=== PATIENT | male | born 1925 | race Caucasian/White ===

== ENCOUNTER 2017-03-04 20:13 | Emergency (ER) | payer MEDICARE, BC ==
[2017-03-04] MEDS ORDERED: Albuterol/Ipratropium 3.0-0.5 MG/3 ML Neb Soln NEB ONE (21:29)
[2017-03-04 21:32] VITALS: BP 118/52
[2017-03-04] MEDS ORDERED: methylPREDNISolone Sodium Succinate 125 MG/2 ML SDV IVPUSH ONE (21:55)
--- NOTE | 2017-03-04 22:01 | EDM.PDOC ---
ED HISTORY OF PRESENT ILLNESS - General Chief Complaint: Respiratory Problem Stated Complaint: COUGH/PNEUMONIA?? Time Seen by Provider: 03/04/17 21:00 Source of Information: Reports: Patient, Family History Limitations: Reports: No limitations - History of Present Illness INITIAL COMMENTS - FREE TEXT/NARRATIVE: c/o increased SOB and cough for one week, hx "asthma". No fever or chills. Has inhalers for use but has not used. Has not been seen in clinic. Breathing worse tonight when trying to lie down. No swelling. Timing/Duration: Reports: Day(s): Severity: moderate Associated Symptoms (General): Reports: cough, shortness of breath. Denies: chest pain, fever/chills - Related Data Allergies/ADRs: Allergies Allergy/AdvReac Type Severity Reaction Status Date / Time No Known Allergies Allergy Verified 03/04/17 20:27 Home Meds: Home Meds Carvedilol [Carvedilol] 3.125 mg PO DAILY 03/04/17 [History] Simvastatin [Simvastatin] 30 mg PO DAILY 03/04/17 [History] Past Medical History HEENT History: Reports: Impaired vision Cardiovascular History: Reports: Hypertension Respiratory History: Reports: Asthma Gastrointestinal History: Reports: GERD, Pancreatitis Oncologic (Cancer) History: Reports: Prostate, Other (see below) Other Oncologic History: bead implants 20years ago - Infectious Disease History Infectious Disease History: Reports: Chicken pox - Past Surgical History HEENT Surgical History: Reports: Cataract surgery GI Surgical History: Reports: Colonoscopy Social & Family History - Tobacco Use Smoking Status *Q: Former Smoker Years of Tobacco use: 30 Packs/Tins Daily: 1 Used Tobacco, but Quit: No Month Tobacco Last Used: oct - Recreational Drug Use Recreational Drug Use: No ED ROS GENERAL - Review of Systems Review Of Systems: See Below Constitutional: Reports: no symptoms HEENT: Reports: No symptoms Respiratory: Reports: Shortness of Breath, Wheezing, Cough Cardiovascular: Reports: No symptoms GI/Abdominal: Reports: No symptoms : Reports: no symptoms Musculoskeletal: Reports: no symptoms Skin: Reports: no symptoms Neurological: Reports: No Symptoms ED EXAM, GENERAL - Physical Exam Exam: See Below Exam Limited By: No limitations General Appearance: alert, mild distress Eye Exam: bilateral eye: EOMI, PERRL Ears: normal external exam, normal TMs (left), other (hearing aid to right ear) Nose: normal inspection Throat/Mouth: Normal inspection, Normal voice Head: atraumatic, normocephalic Neck: normal inspection, full range of motion. No: lymphadenopathy (L), lymphadenopathy (R) Respiratory/Chest: wheezing (bilateral mid to base). No: crackles, rales, rhonchi Cardiovascular: normal peripheral pulses, regular rate, rhythm GI/Abdominal: normal bowel sounds Extremities: normal inspection, no pedal edema Neurological: alert, oriented, CN II-XII intact, normal cognition, confused Psychiatric: normal affect Skin Exam: Warm, Dry, Intact, Normal color Course - Vital Signs Last Recorded V/S: Last Vital Signs Temp 100.0 F 03/04/17 21:36 Pulse 88 03/04/17 21:31 Resp 20 03/04/17 21:31 BP 118/52 L 03/04/17 21:31 Pulse Ox 89 L 03/04/17 21:31 - Orders/Labs/Meds Orders: Active Orders 24 hr Category Date Time Status RT Aerosol Therapy [RC] ASDIRECTED Care 03/04/17 21:30 Active Labs: Laboratory Tests 03/04/17 03/04/17 Range/Units 20:49 20:49 WBC 5.4 (5.0-10.0) 10^3/uL RBC 4.94 (4.6-6.2) 10^6/uL Hgb 14.3 (14.0-18.0) g/dL Hct 43.5 (40.0-54.0) % MCV 88.1 (80-100) fL MCH 28.9 (27.0-34.0) pg MCHC 32.9 L (33.0-35.0) g/dL Plt Count 136 L (150-450) 10^3/uL Sodium 136 (135-145) mmol/L Potassium 4.0 (3.6-5.0) mmol/L Chloride 102 (101-111) mmol/L Carbon Dioxide 24.0 (21.0-31.0) mmol/L Anion Gap 14.0 BUN 29 H (7-18) mg/dL Creatinine 1.7 H (0.6-1.3) mg/dL Est Cr Clr Drug Dosing 26.65 mL/min Estimated GFR (MDRD) 38 BUN/Creatinine Ratio 17.05 Glucose 119 H (74-105) mg/dL Calcium 8.7 (8.4-10.2) mg/dl Total Bilirubin 0.3 (0.2-1.0) mg/dL AST 35 (10-42) IU/L ALT 21 (10-60) IU/L Alkaline Phosphatase 47 (42-121) IU/L Total Protein 7.1 (6.7-8.2) g/dl Albumin 4.1 (3.2-5.5) g/dl Globulin 3.0 Albumin/Globulin Ratio 1.37 Meds: Medications Discontinued Medications Generic Name Dose Route Start Last Admin Trade Name Freq PRN Reason Stop Dose Admin Albuterol/Ipratropium 3 ml 03/04/17 21:29 03/04/17 21:34 Duoneb 3.0-0.5 Mg/3 Ml NEB 03/04/17 21:30 3 ml ONETIME ONE Administration Methylprednisolone Sodium Succinate 125 mg 03/04/17 21:55 03/04/17 22:17 Solu-Medrol IVPUSH 03/04/17 21:56 125 mg ONETIME ONE Administration - Radiology Interpretation Free Text/Narrative:: CXR negative - Re-Assessments/Exams Free Text/Narrative Re-Assessment/Exam: 03/05/17 03:37 Improved air exchange following nebulizer. Departure - Departure Time of Disposition: 21:59 Disposition: Home, Self-Care 01 Condition: good Clinical Impression: Asthma Qualifiers: Asthma severity: mild intermittent Asthma complication type: with acute exacerbation Qualified Code(s): J45.21 - Mild intermittent asthma with (acute) exacerbation Instructions: Asthma, Adult Referrals: Dennis Matson MD [Primary Care Provider] - Forms: ED Department Discharge Additional Instructions: albuterol inhaler 2 puffs every 4 hours as needed for cough or nebulizer with albuterol solution 2.5mg /3ml every 4 hours as needed for cough clinic follow up or friday Prednisone 20mg daily for 5 days - My Orders Last 24 Hours: My Active Orders 03/04/17 21:30 RT Aerosol Therapy [RC] ASDIRECTED - Assessment/Plan Last 24 Hours: My Active Orders 03/04/17 21:30 RT Aerosol Therapy [RC] ASDIRECTED
== END 2017-03-04 22:28 | disposition home or self-care (01) ==
LOC: DL.ED 20:13
DX: J45.21 Mild intermittent asthma with (acute) exacerbation (principal); I10 Essential (primary) hypertension; K21.9 Gastro-esophageal reflux disease without esophagitis; Z98.49 Cataract extraction status, unspecified eye; Z87.891 Personal history of nicotine dependence; Z79.899 Other long term (current) drug therapy
CPT/HCPCS: 36415; 71020; 80053; 85027; 94640; 96374; 99285; J2930; 99284